=== PATIENT | female | born 1955 | race African-American/Black ===

== ENCOUNTER 2025-10-26 11:03 | Outpatient (CLI) | payer MEDICARE, BC, SELFPAY ==
--- NOTE | ~2025-10-26 | US_ITS ---
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 Findings: Uterus: Anterior interbody fibroid measures 2 x 1.3 x 1.4 cm and appears partially submucosal. The uterus is anteverted 7.9 x 3.6 x 5.3 cm. . Endometrium 5.9 mm. Right Ovary:Right ovary not identified. Left Ovary: Left ovary 1.8 x 1.9 x 1.6 cm, no adnexal mass, normal flow. Free Fluid: None Impression: 1. Abnormally thickened endometrium in this postmenopausal patient. Tissue sampling recommended. 2. Probable submucosal fibroid detailed above.Contrast-enhanced MRI suggested to assess Reviewed, dictated and finalized at location P. ING TECHNOLOGIST Impression: 1. Abnormally thickened endometrium in this postmenopausal patient. Tissue samp ling recommended. 2. Probable submucosal fibroid detailed above.Contrast-enhanced MRI suggested t o assess
== END 2025-10-26 11:04 | disposition home or self-care (01) ==
LOC: MICIMG 11:05
DX: R93.89 Abnormal findings on diagnostic imaging of other specified body structures (principal)
CPT/HCPCS: 76830